=== PATIENT | female | born 1985 | race American Indian/Alaskan Native ===

== ENCOUNTER 2018-02-28 11:20 | Emergency (ER) | payer MEDICAID, OTHER ==
[2018-02-28 11:33] VITALS: BP 149/85
[2018-02-28 12:40] LABS: Bilirubin,Urine NEG (Negative); Blood,Urine NEG (Negative); Color,Urine Yellow (Yellow); Mucus,Urine FEW /HPF; Protein,Urine <15 mg/dL mg/dL (Negative); Urobilinogen,Urine < 2.0 mg/dL (<2.0)
[2018-02-28 12:44] LABS: HCG Qualitative,Urine Negative (Negative)
--- NOTE | 2018-02-28 13:08 | Emergency Department Report ---
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 The patient states the back pain is mostly right lower back. It hurts to move. Patient says worse it' s 8 out 10 severity and aching. Patient denies any vaginal discharge or vaginal bleeding dysuria or urinary frequency and urinary urgency abdominal pain - Related Data Previous Rx's Medication Instructions Recorded Last Taken Type Acetaminophen/Codeine [Tylenol #3] 1 tab PO TID PRN #15 tab 08/09/15 Unknown Rx Iron/Folat1/C/B12/Biot/Docusat 1 each PO BID #30 capsule 08/09/15 Unknown Rx [Feriva FA Capsule] Ondansetron [Zofran Odt] 4 mg PO BID #6 tab.rapdis 08/09/15 Unknown Rx Ibuprofen [Motrin] 600 mg PO Q8H PRN #20 tablet 02/28/18 Unknown Rx methOCARBAMOL [Robaxin TAB] 500 mg PO Q6H PRN #14 tablet 02/28/18 Unknown Rx Allergies Allergy/AdvReac Type Severity Reaction Status Date / Time No Known Allergies Allergy Unverified 08/09/15 00:48 ED Review of Systems ROS: Stated complaint: BACK PAIN Other details as noted in HPI Comment: All other systems reviewed and negative ED Past Medical Hx - Past Medical History Hx Hypertension: Yes - Surgical History Past Surgical History?: No - Social History Smoking Status: Never Smoker Substance Use Type: None - Medications Home Medications: Home Medications Medication Instructions Recorded Confirmed Last Taken Type Acetaminophen/Codeine [Tylenol #3] 1 tab PO TID PRN #15 tab 08/09/15 Unknown Rx Iron/Folat1/C/B12/Biot/Docusat 1 each PO BID #30 capsule 08/09/15 Unknown Rx [Feriva FA Capsule] Ondansetron [Zofran Odt] 4 mg PO BID #6 tab.rapdis 08/09/15 Unknown Rx Ibuprofen [Motrin] 600 mg PO Q8H PRN #20 tablet 02/28/18 Unknown Rx methOCARBAMOL [Robaxin TAB] 500 mg PO Q6H PRN #14 tablet 02/28/18 Unknown Rx ED Physical Exam - General Limitations: No Limitations General appearance: alert, in no apparent distress - Head Head exam: Present: atraumatic, normocephalic - Eye Eye exam: Present: normal appearance - ENT ENT exam: Present: mucous membranes moist - Neck Neck exam: Present: normal inspection - Respiratory Respiratory exam: Present: normal lung sounds bilaterally. Absent: respiratory distress - Cardiovascular Cardiovascular Exam: Present: regular rate, normal rhythm. Absent: systolic murmur, diastolic murmur, rubs, gallop - GI/Abdominal GI/Abdominal exam: Present: soft, normal bowel sounds - Extremities Exam Extremities exam: Present: normal inspection - Back Exam Back exam: Present: normal inspection - Neurological Exam Neurological exam: Present: alert, oriented X3 - Psychiatric Psychiatric exam: Present: normal affect, normal mood - Skin Skin exam: Present: warm, dry, intact, normal color. Absent: rash ED Course Vital Signs 02/28/18 11:31 Temperature 98.4 F Pulse Rate 76 Respiratory 18 Rate Blood Pressure 149/85 O2 Sat by Pulse 100 Oximetry ED Medical Decision Making - Lab Data Lab Results 02/28/18 Range/Units 12:07 Urine Color Yellow (Yellow) Urine Turbidity Clear (Clear) Urine pH 5.0 (5.0-7.0) Ur Specific [place] 1.020 (1.003-1.030) Urine Protein <15 mg/dl (Negative) mg/dL Urine Glucose (UA) Neg (Negative) mg/dL Urine Ketones Neg (Negative) mg/dL Urine Blood Neg (Negative) Urine Nitrite Neg (Negative) Urine Bilirubin Neg (Negative) Urine Urobilinogen < 2.0 (<2.0) mg/dL Ur Leukocyte Esterase Neg (Negative) Urine WBC (Auto) 1.0 (0.0-6.0) /HPF Urine RBC (Auto) 4.0 (0.0-6.0) /HPF U Epithel Cells (Auto) 1.0 (0-13.0) /HPF Urine Mucus Few /HPF Urine HCG, Qual Negative (Negative) - Medical Decision Making Patient is a 32-year-old black female who is presenting with low back pain. This will be treated with NSAIDs and a muscle relaxant discharged home Critical care attestation.: If time is entered above; I have spent that time in minutes in the direct care of this critically ill patient, excluding procedure time. ED Disposition Clinical Impression: Low back strain Qualifiers: Encounter type: initial encounter Qualified Code(s): S39.012A - Strain of muscle, fascia and tendon of lower back, initial encounter Disposition: TO HOME OR SELFCARE Is pt being admited?: No Does the pt Need Aspirin: No Condition: Stable Instructions: Muscle Strain (ED) Prescriptions: Ibuprofen [Motrin] 600 mg PO Q8H PRN #20 tablet PRN Reason: Pain methOCARBAMOL [Robaxin TAB] 500 mg PO Q6H PRN #14 tablet PRN Reason: Pain Referrals: JORGE A GALLO MD [Primary Care Provider] - 3-5 Days
== END 2018-02-28 13:11 | disposition home or self-care (01) ==
LOC: ED 11:20
DX: S39.012A Strain of muscle, fascia and tendon of lower back, initial encounter (principal); I10 Essential (primary) hypertension; X58.XXXA Exposure to other specified factors, initial encounter; Y93.89 Activity, other specified; Y92.89 Other specified places as the place of occurrence of the external cause; Y99.8 Other external cause status
CPT/HCPCS: 81001; 81025; 99283

== ENCOUNTER 2020-03-25 09:22 | Outpatient (CLI) | payer OTHER ==
--- NOTE | 2020-03-25 11:55 | Mammography Report ---
RIGHT DIGITAL DIAGNOSTIC MAMMOGRAM WITH CAD -- 03/25/2020 RIGHT COMPLETE BREAST ULTRASOUND INDICATION: Patient presents for follow-up of prior abnormal right breast ultrasound. Patient reports right breast pain. TECHNIQUE: Digital right mammographic imaging was performed. Complete ultrasound of all four (4) jennie drants was performed. This examination was interpreted with the benefit of Computer-Aided Detection ( CAD) analysis. COMPARISON: Prior right breast ultrasound 11/15/2019 FINDINGS: Breast Density: The breasts are heterogeneously dense, which may obscure small masses. MAMMOGRAPHIC FINDINGS: There is no evidence of dominant mass, suspicious calcifications or architectu ral distortion in the right breast. ULTRASOUND FINDINGS: Complete sonographic evaluation of all 4 quadrants and retroareolar region was p erformed. There has been no significant change of an oval circumscribed hypoechoic mass in the righ t breast 1:00 position located 4.5 cm from the nipple, currently measuring up to 1.3 x 0.4 x 1.1 cm, previously 1.2 x 0.4 x 1.2 cm. The mass is parallel. Two adjacent benign simple cysts are seen, the l arger measuring up to 2 mm. Incidental note is made of a tubular hypoechoic structure in the right breast 4:00 position located 5 cm from the nipple measuring up to approximately 10 x 2 x 4 mm. Some internal echoes are demonstrate d, but there is no internal vascularity. No corresponding mammographic abnormality is demonstrated. T his most likely represents a focally ectatic duct with internal debris. IMPRESSION: 1. A stable oval circumscribed mass in the right breast is probably benign and most likely represents a fibroadenoma. Recommend right breast ultrasound in 6 months to ensure ongoing stability. 2. A tubular structure in the 4:00 right breast as described above is favored to represent focal duct ectasia with internal debris. No internal vascularity is demonstrated to suggest an intraductal mass . This can be followed on six-month ultrasound. Follow up recommendation: Short term follow up in 6 months. BI-RADS Category 3: Probably Benign. Followup in 6 months. A "normal" or negative report should not discourage follow up or biopsy of a clinically significant f inding. A written summary of these findings will be mailed to the patient. The patient will be entered into a mammography reporting system which will generate a reminder letter for the patient's next appointmen t at the appropriate interval. According to the [employer], yearly mammograms are recommended starting at age 40 and continuing as long as a woman is in good health. Breast MRI is recommended for women with an [place] roximately 20-25% or greater lifetime risk of breast cancer, including women with a strong family his tory of breast or ovarian cancer and women who have been treated for Hodgkin's disease. Signer Name: Ailyn Gimenez MD Signed: 03/25/2020 11:51 AM Workstation Name: [id number]
== END 2020-03-25 09:23 | disposition home or self-care (01) ==
LOC: SPVWC 09:22
PROVIDERS: ATTEND Surgery
DX: N60.01 Solitary cyst of right breast (principal); N60.41 Mammary duct ectasia of right breast; N64.89 Other specified disorders of breast

== ENCOUNTER 2020-10-07 10:16 | Outpatient (CLI) | payer OTHER ==
--- NOTE | 2020-10-07 12:58 | Ultrasound Report ---
ULTRASOUND BREAST RIGHT LIMITED, 10/07/2020 CLINICAL INFORMATION / INDICATION: Short term follow-up probably benign sonographic findings. TECHNIQUE: Targeted ultrasound evaluation was performed of the area of interest. COMPARISON: Right breast ultrasound 11/15/2019 and 03/25/2020. FINDINGS: There is a well-circumscribed, ovoid, hypoechoic solid nodule at the 1:00 position 4.5 cm from the ni pple. The lesion is parallel and measures 1.3 cm in greatest dimension. No posterior features are see n and there is no internal vascularity on Doppler exam. The nodule has not changed significantly in s ize or appearance. Mild localized ductal ectasia at the 4:00 position 5 cm from the nipple is again identified and has n ot changed. No new abnormality is seen. IMPRESSION: No significant interval change. No sonographic evidence of malignancy. Follow up recommendation: Ultrasound BI-RADS Category 3: Probably Benign. Followup in 12 months. A normal or "negative" report should not preclude biopsy or follow-up of a clinically suspicious find ing. Signer Name: Peter Segovia MD Signed: 10/07/2020 12:53 PM Workstation Name: [id number]
== END 2020-10-07 10:17 | disposition home or self-care (01) ==
LOC: SPVWC 10:16
PROVIDERS: ATTEND Surgery
DX: R92.8 Other abnormal and inconclusive findings on diagnostic imaging of breast (principal)

== ENCOUNTER 2021-04-07 11:08 | Outpatient (CLI) | payer OTHER ==
--- NOTE | 2021-04-07 12:21 | Ultrasound Report ---
ULTRASOUND BREAST RIGHT LIMITED, 04/07/2021 CLINICAL INFORMATION / INDICATION: Follow-up right breast nodule. TECHNIQUE: Targeted ultrasound evaluation was performed of the area of interest. COMPARISON: Right breast ultrasound 11/15/2019 through 10/07/2020. FINDINGS: There is a 1.2 cm oval circumscribed isoechoic to slightly hypoechoic solid nodule at the 1:00 positi on 4 cm from the nipple. The lesion is parallel, has no posterior features and demonstrates no actuarial internship al vascularity on Doppler exam. The nodule measured 1.2 cm on the oldest prior study from 11/15/19. N o other abnormality is seen. IMPRESSION: Benign-appearing solid nodule in the right breast has not changed significantly in size s clair 11/15/19. One more follow-up right breast ultrasound exam is recommended in 7 months to document stability through 2 years. Follow up recommendation: Ultrasound BI-RADS Category 3: Probably Benign. Followup in 7 months. A normal or "negative" report should not preclude biopsy or follow-up of a clinically suspicious find ing. Signer Name: Peter Segovia MD Signed: 04/07/2021 12:16 PM Workstation Name: [id number]
== END 2021-04-07 11:09 | disposition home or self-care (01) ==
LOC: SPVWC 11:08
PROVIDERS: ATTEND Surgery
DX: N63.12 Unspecified lump in the right breast, upper inner quadrant (principal)

== ENCOUNTER 2021-09-14 09:05 | Emergency (ER) | payer OTHER ==
[2021-09-14] MEDS ORDERED: LIDOCAINE VISCOUS 2% 15 ML ORAL LIQD PO ONE (09:42)
[2021-09-14] MEDS ORDERED: predniSONE 20 MG TAB PO ONE (09:42)
[2021-09-14] MEDS ORDERED: IBUPROFEN ORAL LIQD 100 MG/5 ML ORAL.LIQD PO ONE (09:42)
--- NOTE | 2021-09-14 10:57 | Emergency Department Report ---
ED ENT HPI - General Chief complaint: Sore Throat Stated complaint: SORE THROAT Time Seen by Provider: 09/14/21 09:34 Source: patient Mode of arrival: Ambulatory Limitations: No Limitations - History of Present Illness Initial comments: 35-year-old -[place] female presents to the emergency room for sore throat for 1 week. Patient states that throat is worse when she swallows. She has tried taking [id number] Mucinex cold and flu and BC powders. States she has been having a low-grade fever. Headache mild cough. MD complaint: sore throat, difficulty swallowing Onset/Timin -: week(s) Location: throat - Related Data Previous Rx's Medication Instructions Recorded Last Taken Type Acetaminophen/Codeine [Tylenol #3] 1 tab PO TID PRN #15 tab 08/09/15 Unknown Rx Iron/Folat1/C/B12/Biot/Docusat 1 each PO BID #30 capsule 08/09/15 Unknown Rx [Feriva FA Capsule] Ondansetron [Zofran Odt] 4 mg PO BID #6 tab.rapdis 08/09/15 Unknown Rx Ibuprofen [Motrin] 600 mg PO Q8H PRN #20 tablet 02/28/18 Unknown Rx methOCARBAMOL [Robaxin TAB] 500 mg PO Q6H PRN #14 tablet 02/28/18 Unknown Rx Amoxicillin/K Clav Tab [Augmentin 1 tab PO Q12HR 7 Days #14 tab 09/14/21 Unknown Rx 875 mg] Ibuprofen [Motrin 800 MG tab] 800 mg PO Q8HR PRN #30 tablet 09/14/21 Unknown Rx Allergies Allergy/AdvReac Type Severity Reaction Status Date / Time No Known Allergies Allergy Unverified 08/09/15 00:48 ED Dental HPI - General Chief complaint: Sore Throat Stated complaint: SORE THROAT Time Seen by Provider: 09/14/21 09:34 Source: patient Mode of arrival: Ambulatory Limitations: No Limitations - Related Data Previous Rx's Medication Instructions Recorded Last Taken Type Acetaminophen/Codeine [Tylenol #3] 1 tab PO TID PRN #15 tab 08/09/15 Unknown Rx Iron/Folat1/C/B12/Biot/Docusat 1 each PO BID #30 capsule 08/09/15 Unknown Rx [Feriva FA Capsule] Ondansetron [Zofran Odt] 4 mg PO BID #6 tab.rapdis 08/09/15 Unknown Rx Ibuprofen [Motrin] 600 mg PO Q8H PRN #20 tablet 02/28/18 Unknown Rx methOCARBAMOL [Robaxin TAB] 500 mg PO Q6H PRN #14 tablet 02/28/18 Unknown Rx Amoxicillin/K Clav Tab [Augmentin 1 tab PO Q12HR 7 Days #14 tab 09/14/21 Unknown Rx 875 mg] Ibuprofen [Motrin 800 MG tab] 800 mg PO Q8HR PRN #30 tablet 09/14/21 Unknown Rx Allergies Allergy/AdvReac Type Severity Reaction Status Date / Time No Known Allergies Allergy Unverified 08/09/15 00:48 ED Review of Systems ROS: Stated complaint: SORE THROAT Other details as noted in HPI ED Past Medical Hx - Past Medical History Previous Medical History?: Yes Hx Hypertension: Yes - Social History Smoking Status: Never Smoker Substance Use Type: None - Medications Home Medications: Home Medications Medication Instructions Recorded Confirmed Last Taken Type Acetaminophen/Codeine [Tylenol #3] 1 tab PO TID PRN #15 tab 08/09/15 Unknown Rx Iron/Folat1/C/B12/Biot/Docusat 1 each PO BID #30 capsule 08/09/15 Unknown Rx [Feriva FA Capsule] Ondansetron [Zofran Odt] 4 mg PO BID #6 tab.rapdis 08/09/15 Unknown Rx Ibuprofen [Motrin] 600 mg PO Q8H PRN #20 tablet 02/28/18 Unknown Rx methOCARBAMOL [Robaxin TAB] 500 mg PO Q6H PRN #14 tablet 02/28/18 Unknown Rx Amoxicillin/K Clav Tab [Augmentin 1 tab PO Q12HR 7 Days #14 tab 09/14/21 Unknown Rx 875 mg] Ibuprofen [Motrin 800 MG tab] 800 mg PO Q8HR PRN #30 tablet 09/14/21 Unknown Rx ED Physical Exam - General Limitations: No Limitations General appearance: alert, in no apparent distress, other (Appears to be uncomfortable) - Head Head exam: Present: atraumatic, normocephalic - Eye Eye exam: Present: normal appearance - Expanded ENT Exam Expanded Throat exam: Positive: tonsillar erythema, tonsillomegaly, tonsillar exudate - Neck Neck exam: Present: full ROM, lymphadenopathy - Respiratory Respiratory exam: Present: normal lung sounds bilaterally. Absent: respiratory distress, accessory muscle use - Cardiovascular Cardiovascular Exam: Present: tachycardia - Back Exam Back exam: Present: normal inspection - Neurological Exam Neurological exam: Present: alert, oriented X3, normal gait - Psychiatric Psychiatric exam: Present: normal affect, normal mood - Skin Skin exam: Present: warm, dry, intact, normal color. Absent: rash ED Medical Decision Making - Medical Decision Making 35-year-old -[place] female presents to the emergency room for sore throat for 1 week. Patient states that throat is worse when she swallows. She has tried taking [id number] Mucinex cold and flu and BC powders. States she has been having a low-grade fever. Headache mild cough. We will treat for upper respiratory infection. Patient has sore throat with exudate erythematous hypertrophic tonsils. Mild cough clear to lungs. Critical care attestation.: If time is entered above; I have spent that time in minutes in the direct care of this critically ill patient, excluding procedure time. ED Disposition Clinical Impression: Upper respiratory infection, acute, Pharyngitis, Fever Disposition: 01 HOME / SELF CARE / HOMELESS Is pt being admited?: No Does the pt Need Aspirin: No Condition: Stable Instructions: Fever, Adult, [id number], Pharyngitis, [id number], Upper Respiratory Infection, Adult, [id number] Additional Instructions: Complete antibiotics increase your fluids take pain medication as needed and rest. Prescriptions: Amoxicillin/K Clav Tab [Augmentin 875 mg] 1 tab PO Q12HR 7 Days #14 tab Ibuprofen [Motrin 800 MG tab] 800 mg PO Q8HR PRN #30 tablet PRN Reason: Pain , Severe (7-10) Referrals: Your, primary care provider [Other] - 3-5 Days Forms: Work/School Release Form(ED) Time of Disposition: 10:57
[2021-09-14 11:23] VITALS: BP 143/78
== END 2021-09-14 11:22 | disposition home or self-care (01) ==
LOC: ED 09:05
DX: J06.9 Acute upper respiratory infection, unspecified (principal); I10 Essential (primary) hypertension; Z98.890 Other specified postprocedural states; Z79.899 Other long term (current) drug therapy
CPT/HCPCS: 87116; 87430; 99283; J7512